=== PATIENT | female | born 1990 | race American Indian/Alaskan Native ===

== ENCOUNTER 2018-07-23 15:58 | Emergency (ER) | payer SELFPAY ==
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
[2018-07-23 17:16] VITALS: BP 120/78; PULSE 81; RESP 20; TEMP 98; O2SAT 100
--- NOTE | 2018-07-24 08:41 | RAD ---
Date of service: 07/23/2018 HISTORY: Cough COMPARISON: No prior. TECHNIQUE: Chest PA and lateral FINDINGS: LINES AND TUBES: None. LUNG AND PLEURA: The lungs are well inflated and clear. No pleural effusion or pneumothorax. HEART AND MEDIASTINUM: The heart is not enlarged. No aortic atherosclerotic calcification present. The hilar and mediastinal contours are within normal limits. SKELETAL STRUCTURES: The bony structures are within normal limits for the patient's age. VISUALIZED UPPER ABDOMEN: Normal. OTHER FINDINGS: None. IMPRESSION: No active pulmonary disease.
== END 2018-07-23 18:04 | disposition home or self-care (01) ==
LOC: H.ER 15:58
DX: M54.9 Dorsalgia, unspecified (principal); R06.02 Shortness of breath; R05 Cough; J45.909 Unspecified asthma, uncomplicated

== ENCOUNTER 2018-08-06 11:39 | Emergency (ER) | payer OTHER ==
[2018-08-06 11:44] VITALS: BMI 32.9
[2018-08-06 11:45] VITALS: BP 123/70; PULSE 90; RESP 17; TEMP 98; O2SAT 97
--- NOTE | 2018-08-06 12:19 | ED PDOC ---
HPI: General Adult Time Seen by Provider: 08/06/18 12:04 Chief Complaint (Nursing): Lower Extremity Problem/Injury Chief Complaint (Provider): Lower Extremity Problem History Per: Patient History/Exam Limitations: no limitations Onset/Duration Of Symptoms: Days (2x days), Sudden Onset Current Symptoms Are (Timing): Still Present Severity: Moderate Additional Complaint(s): 28 year old female with no pertinent past medical history presents to the ED for an evaluation of left knee pain that started yesterday. Patient states that yesterday, she was attempting to sit down when she developed sudden onset of left knee pain. Patient reports that she has difficulty bending her left knee now. Patient reports taking naproxen and ibuprofen with no relief. Patient denies having blunt trauma. Of note: Patient reports that for the past 10x days, she has been experiencing dry mouth and has been drinking more water and gargling with water and lemon juice with no relief. Patient denies aving a sore throat, fevers, rash, and redness. PMD: None provided. Past Medical History Reviewed: Historical Data, Nursing Documentation, Vital Signs Vital Signs: Last Vital Signs Temp 98 F 08/06/18 11:44 Pulse 90 08/06/18 11:44 Resp 17 08/06/18 11:44 BP 123/70 08/06/18 11:44 Pulse Ox 97 08/06/18 11:44 CARLOS Report Viewed: Yes - Medical History PMH: Asthma Denies: Chronic Kidney Disease - Family History Family History: States: No Known Family Hx - Social History Current smoker - smoking cessation education provided: No Alcohol: Occasional Drugs: Denies - Immunization History Hx Tetanus Toxoid Vaccination: No Hx Influenza Vaccination: No Hx Pneumococcal Vaccination: No - Home Medications Home Medications: Ambulatory Orders Medication Instructions Recorded Cephalexin [cephalexin] 500 mg PO BID #10 cap 03/28/18 Naproxen [Anaprox DS] 550 mg PO Q8 PRN 03/28/18 Albuterol HFA [Ventolin HFA 90 1 puff IH TID #1 puff 07/23/18 mcg/actuation (8 g)] Ibuprofen [Motrin Tab] 600 mg PO TID 5 Days #15 tab 07/23/18 Meloxicam [Mobic] 15 mg PO DAILY PRN #10 tab 08/06/18 - Allergies Allergies/Adverse Reactions: Allergies Allergy/AdvReac Type Severity Reaction Status Date / Time No Known Allergies Allergy Verified 12/22/15 16:37 Review of Systems ROS Statement: Except As Marked, All Systems Reviewed And Found Negative Constitutional: Negative for: Fever ENT: Positive for: Other (mouth dryness). Negative for: Throat Pain Musculoskeletal: Positive for: Other (left knee pain) Skin: Negative for: Rash, Other (redness) Physical Exam - Reviewed Nursing Documentation Reviewed: Yes Vital Signs Reviewed: Yes - Physical Exam Appears: Positive for: Well, Non-toxic, No Acute Distress Head Exam: Positive for: ATRAUMATIC, NORMOCEPHALIC Skin: Positive for: Normal Color, Warm, Dry. Negative for: Rash ENT: Positive for: Normal ENT Inspection, Pharynx Is (clear), Other ((+) moist mucous membranes, (-) lesions in oral pharynx) Neck: Positive for: Normal ((-) lymph adenopathy) Pulses-Dorsalis Pedis (L): 2+ Pulses-Dorsalis Pedis (R): 2+ Extremity: Positive for: Normal ROM (full ROM actively of bilateral knees with pain of left knee), Other (bilateral knees: (-) warmth, (-) erythema, (-) tenderness, (-) swelling, (-) deformity, (-) break in skin integrity, (-) crepitus. (-) joint laxity of left knee, (-) anterior draw sign of left knee.) Neurologic/Psych: Positive for: Alert, Oriented (3x) - ECG O2 Sat by Pulse Oximetry: 97 (RA) Pulse Ox Interpretation: Normal - Progress ED Course And Treament: Offered patient XRay of left knee, patient refused. Advised patient to follow up with ENT and recommended using biotene mouthwash. Also advised patient to follow up with orthopedist for further evaluation of knee pain and possible MRI scan. Provided instructions to return to ED if symptoms do not improved. Medical Decision Making Medical Decision Makin:04 Initial impression: 28 year old female with knee pain and dry mouth. Initial plan: * upreg * toradol 30 mg IM * reevaluation Scribe Attestation: Documented byNella Hernández, acting as a scribe for Keon Tarango Provider Scribe Attestation: All medical record entries made by the Scribe were at my direction and personally dictated by me. I have reviewed the chart and agree that the record accurately reflects my personal performance of the history, physical exam, medical decision making, and the department course for this patient. I have also personally directed, reviewed, and agree with the discharge instructions and disposition. Disposition - Clinical Impression Clinical Impression: Dry mouth, unspecified, Knee pain - Patient ED Disposition Is Patient to be Admitted: No - Disposition Referrals: [facility] [Outside] Dani Montano MD [Medical Doctor] - Robin Cary MD [Staff Provider] - Disposition: Routine/Home Disposition Time: 12:18 Condition: STABLE Additional Instructions: FOLLOW UP WITH ENT AND ORTHOPEDIST FOR FURTHER EVALUATION RETURN TO ED IMMEDIATELY IF SYMPTOMS WORSEN JESUS CEDILLO, thank you for letting us take care of you today. Your provider was Tricia Suazo MD and you were treated for B/L LEG PAIN. The emergency medical care you received today was directed at your acute symptoms. If you were prescribed any medication, please fill it and take as directed. It may take several days for your symptoms to resolve. Return to the Emergency Department if your symptoms worsen, do not improve, or if you have any other problems. Please contact your doctor or call one of the physicians/clinics you have been referred to that are listed on the Patient Visit Information form that is included in your discharge packet. Bring any paperwork you were given at disch arge with you along with any medications you are taking to your follow up visit. Our treatment cannot replace ongoing medical care by a primary care provider outside of the emergency department. Thank you for allowing the [facility] team to be part of your care today. If you had an X-Ray or CT scan: A Radiologist will review the ED reading if any change in treatment is needed we will contact you. If you had a blood, urine, or wound culture: It will take several days for the results, if any change in treatment is needed we will contact you. If you had an STI test: It will take 48 hours for the results. Please call after 1 week if you have not heard back. Prescriptions: Meloxicam [Mobic] 15 mg PO DAILY PRN #10 tab PRN Reason: Pain Instructions: Xerostomia, Knee Pain (DC) Forms: [facility] (German) Print Language: BRUNEIAN
== END 2018-08-06 12:39 | disposition home or self-care (01) ==
LOC: H.ER 11:39
DX: R68.2 Dry mouth, unspecified (principal); M25.562 Pain in left knee; J45.909 Unspecified asthma, uncomplicated
CPT/HCPCS: 81025; 96372; 99283; J1885